=== PATIENT | male | born 1965 | race Caucasian/White ===

== ENCOUNTER 2016-11-12 07:32 | Emergency (ER) | payer BC ==
[2016-11-12 07:37] VITALS: BP 142/88
[2016-11-12] MEDS ORDERED: Ondansetron 4 MG/2 ML SDV IVPUSH ONE (07:48)
--- NOTE | 2016-11-12 07:53 | EDM.PDOC ---
ED HISTORY OF PRESENT ILLNESS - General Chief Complaint: Cardiovascular Problem Stated Complaint: NAUSEA Time Seen by Provider: 11/12/16 07:53 Source of Information: Reports: Patient History Limitations: Reports: No limitations - History of Present Illness INITIAL COMMENTS - FREE TEXT/NARRATIVE: 51-year-old male presents the ED after a near syncopal event while in the radiology suite where he was preparing to have Nadeen can ECG stress test. States it had started to feel unwell after needlestick in any case the saline. Develop some diaphoresis lie slight nausea but clammy and little short of breath so they brought him to the ED. Is not a recurrent suggest early. Orthostatic BPs were positive with supine BP one 3284 and standing 117/92. Rates are not included in the evaluation. He feels fine now worries lying still Symptom Onset Date: 11/12/16 Symptom Onset Time: 07:30 Timing/Duration: Reports: Minutes: Severity: moderate Location, General: Reports: generalized Quality: Reports: Other ([place] mildly nauseated and clammy cool and diaphoretic like he might faint.) Improves with: Reports: Rest (Supine position) Worsens with: Reports: Other Context, General: Denies: Activity (Standing.), Exercise, Lifting, Sick contact , Trauma, Other Associated Symptoms (General): Reports: nausea/vomiting, shortness of breath, weakness, other. Denies: confusion, chest pain, cough, cough w sputum, diaphoresis, fever/chills, headaches, loss of appetite, malaise, rash (Mild nausea), seizure, syncope Treatments MANAGER MORTGAGE: Reports: Other (see below) (Diaphoresis) - Related Data Allergies/ADRs: Allergies Allergy/AdvReac Type Severity Reaction Status Date / Time No Known Allergies Allergy Verified 11/12/16 07:37 Home Meds: Home Meds . [No Known Home Meds] 11/12/16 [History] Past Medical History Cardiovascular History: Reports: IA, Other (see below) Other Cardiovascular History: Woaem-Dznmehgoi-Utpbe Syndrome - Past Surgical History Cardiovascular Surgical History: Reports: Cardiac Ablation Other Cardiovascular Surgeries/Procedures: ablation in 1999. IA's while an infant Musculoskeletal Surgical History: Reports: ORIF Other Musculoskeletal Surgeries/Procedures:: ORIF R Foot Social & Family History - Tobacco Use Smoking Status *Q: Former Smoker Used Tobacco, but Quit: Yes Month Tobacco Last Used: 13 years Second Hand Smoke Exposure: No - Caffeine Use Caffeine Use: Reports: Coffee - Recreational Drug Use Recreational Drug Use: No - Living Situation & Occupation Living situation: Reports: Occupation: employed ED ROS GENERAL - Review of Systems Review Of Systems: See Below Constitutional: Reports: weakness. Denies: fever, chills, malaise, fatigue, decreased appetite, weight loss (This morning's events.) HEENT: Reports: No symptoms Respiratory: Reports: Shortness of Breath. Denies: Wheezing, Pleuritic Chest Pain, Cough, Sputum, Hemoptysis Cardiovascular: Reports: Lightheadedness. Denies: Chest pain, Blood pressure problem, Dyspnea on exertion, Edema, Palpitations Endocrine: Reports: no symptoms GI/Abdominal: Reports: Nausea (Transient nausea) : Reports: no symptoms Musculoskeletal: Reports: no symptoms Skin: Reports: diaphoresis (Was cool and clammy when he arrived with some pallor.) Neurological: Reports: Dizziness, Weakness. Denies: Pre-Existing Deficit, Seizure, Tingling Psychiatric: Reports: No symptoms Hematologic/Lymphatic: Reports: no symptoms Immunologic: Reports: no symptoms ED EXAM, GENERAL - Physical Exam Exam: See Below Exam Limited By: No limitations General Appearance: alert, WD/WN, no apparent distress Eye Exam: bilateral eye: normal inspection Throat/Mouth: Normal inspection, Normal lips, Normal oropharynx Head: atraumatic, normocephalic Neck: normal inspection, supple, non-tender, full range of motion Respiratory/Chest: no respiratory distress, lungs clear, normal breath sounds, no accessory muscle use, chest non-tender Cardiovascular: normal peripheral pulses, regular rate, rhythm, no edema, no gallop, no JVD, no murmur Peripheral Pulses: 2+: posterior tibial (L), posterior tibial (R), dorsalis pedis (L), dorsalis pedis (R) GI/Abdominal: normal bowel sounds, soft, non tender, no distention, other ( Large umbilical hernia which is easily reduced and not bothersome to the patient.) Neurological: alert, oriented, CN II-XII intact, normal cognition, normal gait Psychiatric: normal affect, normal mood Skin Exam: Warm, Dry, Intact, Normal color, No rash Course - Vital Signs Last Recorded V/S: Last Vital Signs Temp 36.1 C 11/12/16 07:34 Pulse 65 11/12/16 07:34 Resp 18 11/12/16 07:34 BP 142/88 H 11/12/16 07:34 Pulse Ox 96 11/12/16 08:05 Orthostatic Blood Pressure [ 129/88 Standing] Orthostatic Blood Pressure [ 127/70 Supine] - Orders/Labs/Meds Orders: Active Orders 24 hr Category Date Time Status Dextrose 5%-0.9% NaCl [Dextrose 5%-Normal Saline] 1,000 Med 11/12/16 08:00 Active ml IV ASDIRECTED Medication Orders Dextrose/Sodium Chloride (Dextrose 5%-Normal Saline) 1,000 mls @ 999 mls/hr IV ASDIRECTED JENNIFER Last Admin: 11/12/16 07:57 Dose: 999 mls/hr Meds: Medications Generic Name Dose Route Start Last Admin Trade Name Freq PRN Reason Stop Dose Admin Dextrose/Sodium Chloride 1,000 mls @ 999 mls/hr 11/12/16 08:00 11/12/16 07:57 Dextrose 5%-Normal Saline IV 999 mls/hr ASDIRECTED JENNIFER Administration Discontinued Medications Generic Name Dose Route Start Last Admin Trade Name Freq PRN Reason Stop Dose Admin Ondansetron HCl 4 mg 11/12/16 07:48 11/12/16 07:56 Zofran IVPUSH 11/12/16 07:49 4 mg ONETIME ONE Administration - Radiology Interpretation Free Text/Narrative:: 51-year-old male sent across from the radiology Department where he was scheduled to have Laurent can ECG stress test this morning. After IV access and initial injection a flush he started to feel unwell with nausea continues to saline in his mouth felt lightheaded dizzy adopt a little diaphoresis and clamminess and felt a little short of breath. [place] he might faint. Therefore he was brought to the ED for further evaluation one supine and at this time he feels back to normal. Orthostatics show BP 132/84 supine BP standing 117/92. Return not included in this evaluation. My examination is otherwise completely normal. Plan Will give him a bolus of D5 normal saline and he should still be able to have his stress test carried out. - Re-Assessments/Exams Free Text/Narrative Re-Assessment/Exam: 11/12/16 09:00: Decision made by combination of patient and ECG stress testing staff that it be better suited to come back it an alternative time for he is scan. He'll therefore be rebooked. He was discharged home from the emergency room after 600 mils of IV fluids as he was no longer orthostatic. He will not go on have breakfast. Departure - Departure Time of Disposition: 08:51 Disposition: Home, Self-Care 01 Condition: fair Clinical Impression: Vasovagal near-syncope Instructions: Vasovagal Syncope, Adult Referrals: Cesar Soriano MD [Primary Care Provider] - Forms: ED Department Discharge Additional Instructions: Evaluation in the emergency room today in regards to development of nausea lightheadedness dizziness and shortness of breath feeling after having needlestick woke in preparation for Nadeen can ECG stress test. It abuts the ED for evaluation because you're feeling so unwell. Identified the to blood pressure had dropped substantially when you stand which is called orthostatic hypotension minibag were volume depleted from not eating or drinking much since yesterday. This coupled by recent needlestick which will go vasovagal reaction to order heart rate transiently which in turned toward her blood pressure further. This cause you to feel quite ill for a period of time. You're treated with intravenous Flagyl in the ED and orthostatic blood pressures returned to normal. Apparently they don't have time to complete the ECG stress test today and therefore will have to be rebooked a later time. Your therefore discharged to home with no changes in medications made. - My Orders Last 24 Hours: My Active Orders 11/12/16 08:00 Dextrose 5%-0.9% NaCl [Dextrose 5%-Normal Saline] 1,000 ml IV ASDIRECTED - Assessment/Plan Last 24 Hours: My Active Orders 11/12/16 08:00 Dextrose 5%-0.9% NaCl [Dextrose 5%-Normal Saline] 1,000 ml IV ASDIRECTED
[2016-11-12] MEDS ORDERED: Dextrose 5%-0.9% NaCl 1,000 ML IV SCH (08:00)
== END 2016-11-12 09:00 | disposition home or self-care (01) ==
LOC: JD.ED 07:32
DX: R55 Syncope and collapse (principal); I25.2 Old myocardial infarction; Z87.891 Personal history of nicotine dependence
CPT/HCPCS: 96361; 96374; 99284; J2405; J7042

== ENCOUNTER 2018-02-19 06:32 | Day surgery (SDC) | payer BC ==
[2018-02-19] MEDS ORDERED: Lidocaine 1%/Sod Bicarbonate in NS 8.4% 1 ML Syringe IDERM PRN (07:00)
[2018-02-19] MEDS ORDERED: Sodium Chloride 0.9% 10 ML Syringe FLUSH PRN (07:00)
[2018-02-19] MEDS ORDERED: Lactated Ringers 1,000 ML IV SCH (07:00)
--- NOTE | 2018-02-19 07:20 | PCM.PREANE ---
Preanesthetic Assessment - Procedure Proposed Procedure: colonoscopy - Anesthesia/Transfusion/Family Hx Anesthesia History: No Prior Anesthesia Family History of Anesthesia Reaction: No Transfusion History: No Prior Transfusion(s) - Review of Systems General: No Symptoms Pulmonary: No Symptoms Cardiovascular: No Symptoms Gastrointestinal: No Symptoms (`) Neurological: No Symptoms Other: Reports: None - Physical Assessment NPO Status Date: 02/18/18 NPO Status Time: 22:00 Pulse: 70 O2 Sat by Pulse Oximetry: 95 Respiratory Rate: 16 Blood Pressure: 140/95 Temperature: 37.1 C Height: 1.7 m ASA Class: 3 Mental Status: Alert & Oriented x3 Airway Class: Mallampati = 2 Dentition: Reports: Normal Dentition Thyro-Mental Finger Breadths: 3 Mouth Opening Finger Breadths: 5 ROM/Head Extension: Limited/Partial (stiffness) Lungs: Clear to Auscultation, Normal Respiratory Effort Cardiovascular: Regular Rate, Regular Rhythm - Allergies Allergies/Adverse Reactions: Allergies Allergy/AdvReac Type Severity Reaction Status Date / Time No Known Allergies Allergy Verified 02/18/18 14:40 - Blood Blood Available: No - Anesthesia Plan Pre-Op Medication Ordered: None - Acknowledgements Anesthesia Type Planned: MAC Pt an Appropriate Candidate for the Planned Anesthesia: Yes Alternatives and Risks of Anesthesia Discussed w Pt/Guardian: Yes Pt/Guardian Understands and Agrees with Anesthesia Plan: Yes PreAnesthesia Questionnaire HEENT History: Reports: Impaired Vision, Other (See Below) Other HEENT History: uses reading glasses Cardiovascular History: Reports: CAD, High Cholesterol, Hypertension, LA, Other (See Below) Other Cardiovascular History: Tohhz-Mtwktpayz-Ldshi Syndrome Respiratory History: Reports: SOB, Other (See Below) (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) Other Respiratory History: elevated hemidiaphragm, left pulmonary nodule, paralyzed diaphragm Gastrointestinal History: Reports: Other (See Below) Other Gastrointestinal History: umbilical hernia Genitourinary History: Reports: None MEDICAL CENTER REPRESENTATIVE History: Reports: None Musculoskeletal History: Reports: None Neurological History: Reports: None Psychiatric History: Reports: None Endocrine/Metabolic History: Reports: None Hematologic History: Reports: None Immunologic History: Reports: None Oncologic (Cancer) History: Reports: None Dermatologic History: Reports: None - Past Surgical History Head Surgeries/Procedures: Reports: None Cardiovascular Surgical History: Reports: Cardiac Ablation Other Cardiovascular Surgeries/Procedures: ablation in 1999. LA's while an GI Surgical History: Reports: None Female Surgical History: Reports: None Male Surgical History: Reports: None Endocrine Surgical History: Reports: None Neurological Surgical History: Reports: None Musculoskeletal Surgical History: Reports: ORIF Other Musculoskeletal Surgeries/Procedures:: ORIF R Foot Oncologic Surgical History: Reports: None Dermatological Surgical History: Reports: None - SUBSTANCE USE Smoking Status *Q: Former Smoker Recreational Drug Use History: No - HOME MEDS Home Medications: Home Meds Albuterol Sulfate [Proair Hfa] 2 puff INH Q4H PRN 02/18/18 [History] Aspirin [Halfprin] 81 mg PO DAILY 02/18/18 [History] Naproxen Sodium [Aleve] 220 mg PO BID 02/18/18 [History] Pravastatin Sodium 20 mg PO DAILY 02/18/18 [History] - CURRENT (IN HOUSE) MEDS Current Meds: Current Medications Lactated Ringer's (Ringers, Lactated) 1,000 mls @ 125 mls/hr IV ASDIRECTED JENNIFER Lidocaine/Sodium Bicarbonate (Buffered Lidocaine 1% In Ns 8.4%) 0.25 ml IDERM ONETIME PRN PRN Reason: Prior to IV Start Sodium Chloride (Saline Flush) 10 ml FLUSH ASDIRECTED PRN PRN Reason: Keep Vein Open
--- NOTE | 2018-02-19 07:32 | PCM.HP ---
H&P History of Present Illness - General Date of Service: 02/19/18 Admit Problem/Dx: Family history of colon polyps in mother Source of Information: Patient History Limitations: Reports: No Limitations - History of Present Illness Initial Comments - Free Text/Narative: 52 year old male here today for screening colonoscopy, his mother had colon polyps removed. The patient has never had a colonoscopy, he is having no blood in the stool, no radical change in bowel habits. THere is no family history of colon cancer. He is able to accomplish 4 mets of activity without chest pain or dyspnea. He has a history of an elevated hemidiaphragm after a fall. - Related Data Allergies/Adverse Reactions: Allergies Allergy/AdvReac Type Severity Reaction Status Date / Time No Known Allergies Allergy Verified 02/18/18 14:40 Home Medications: Home Meds Albuterol Sulfate [Proair Hfa] 2 puff INH Q4H PRN 02/18/18 [History] Aspirin [Halfprin] 81 mg PO DAILY 02/18/18 [History] Naproxen Sodium [Aleve] 220 mg PO BID 02/18/18 [History] Pravastatin Sodium 20 mg PO DAILY 02/18/18 [History] Past Medical History HEENT History: Reports: Impaired Vision, Other (See Below) Other HEENT History: uses reading glasses Cardiovascular History: Reports: CAD, High Cholesterol, Hypertension, CT, Other (See Below) Other Cardiovascular History: Bvojx-Gcoennuce-Crurx Syndrome Respiratory History: Reports: SOB, Other (See Below) (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) Other Respiratory History: elevated hemidiaphragm, left pulmonary nodule, paralyzed diaphragm Gastrointestinal History: Reports: Other (See Below) Other Gastrointestinal History: umbilical hernia Genitourinary History: Reports: None APARTMENT RENTAL CLERK History: Reports: None Musculoskeletal History: Reports: None Neurological History: Reports: None Psychiatric History: Reports: None Endocrine/Metabolic History: Reports: None Hematologic History: Reports: None Immunologic History: Reports: None Oncologic (Cancer) History: Reports: None Dermatologic History: Reports: None - Past Surgical History Head Surgeries/Procedures: Reports: None Cardiovascular Surgical History: Reports: Cardiac Ablation Other Cardiovascular Surgeries/Procedures: ablation in 1999. CT's while an GI Surgical History: Reports: None Female Surgical History: Reports: None Male Surgical History: Reports: None Endocrine Surgical History: Reports: None Neurological Surgical History: Reports: None Musculoskeletal Surgical History: Reports: ORIF Other Musculoskeletal Surgeries/Procedures:: ORIF R Foot Oncologic Surgical History: Reports: None Dermatological Surgical History: Reports: None Social & Family History - Tobacco Use Smoking Status *Q: Former Smoker Used Tobacco, but Quit: Yes Month/Year Tobacco Last Used: 2006 - Caffeine Use Caffeine Use: Reports: Coffee - Recreational Drug Use Recreational Drug Use: No Drug Use in Last 12 Months: No - Living Situation & Occupation Living situation: Reports: Occupation: Employed H&P Review of Systems - Review of Systems: Review Of Systems: See Below General: Reports: No Symptoms Pulmonary: Reports: Shortness of Breath. Denies: Wheezing, Pleuritic Chest Pain , Cough, Sputum Cardiovascular: Reports: No Symptoms Gastrointestinal: Reports: No Symptoms Skin: Reports: No Symptoms Exam - Exam Exam: See Below - Vital Signs Vital Signs: Last Vital Signs Temp 37.1 C 02/19/18 07:21 Pulse 70 02/19/18 07:21 Resp 16 02/19/18 07:21 BP 140/95 H 02/19/18 07:21 Pulse Ox 95 02/19/18 07:21 - Exam General: Alert, Oriented Neck: Supple Lungs: Clear to Auscultation, Normal Respiratory Effort Cardiovascular: Regular Rate, Regular Rhythm - Problem List (1) Family history of colonic polyps SNOMED Code(s): 527238445 ICD Code: Z83.71 - FAMILY HISTORY OF COLONIC POLYPS Status: Acute Current Visit: Yes Problem List Initiated/Reviewed/Updated: Yes Orders Last 24hrs: Active Orders 24 hr Category Date Time Status Peripheral IV Care [RC] . DIRECTED Care 02/19/18 07:00 Active Verify Patient Consent Obtain [RC] ASDIRECTED Care 02/19/18 07:00 Active Lactated Ringers [Ringers, Lactated] 1,000 ml Med 02/19/18 07:00 Active IV ASDIRECTED Lidocaine 1%/Sod Bicarbonate [Buffered Lidocaine 1% in Med 02/19/18 07:00 Active NS 8.4%] 0.25 ml IDERM ONETIME PRN Sodium Chloride 0.9% [Saline Flush] Med 02/19/18 07:00 Active 10 ml FLUSH ASDIRECTED PRN Medication Administration Instruction [OM.PC] Routine Oth 02/19/18 07:00 Ordered Peripheral IV Insertion Adult [OM.PC] Routine Oth 02/19/18 07:00 Ordered Medication Orders Lactated Ringer's (Ringers, Lactated) 1,000 mls @ 125 mls/hr IV ASDIRECTED JENNIFER Lidocaine/Sodium Bicarbonate (Buffered Lidocaine 1% In Ns 8.4%) 0.25 ml IDERM ONETIME PRN PRN Reason: Prior to IV Start Sodium Chloride (Saline Flush) 10 ml FLUSH ASDIRECTED PRN PRN Reason: Keep Vein Open Assessment/Plan Comment:: 52 year old male here for screening colonoscopy for family history of colon polyps. benefits and risks discussed including the possibility of perforation, bleeding or anesthesia problems. He voiced understanding and will proceed with colonoscopy.
--- NOTE | 2018-02-19 08:17 | PCM.OPNOTE ---
- General Post-Op/Procedure Note Date of Surgery/Procedure: 02/19/18 Operative Procedure(s): Screening colonoscopy Findings: Normal colonoscopy Pre Op Diagnosis: Family history of colon polyps in mother Post-Op Diagnosis: Normal colonoscopy Anesthesia Technique: MAC Primary Surgeon: Cesar Soriano Anesthesia Provider: Brianna Adams EBPaul in mLs: 0 Complications: None Condition: Good Free Text/Narrative:: After the patient gave verbal and written consent he was placed on blood pressure and pulse ox monitoring. He was given iv sedation which he tolerated well. The olympus colonoscope was inserted per rectum and advanced to the cecum without difficulty. The ileocecal valve and appendiceal orfice were imaged documenting cecal intubation. The scope was slowly withdrawn and the mucosal surfaces were viewed. The prep was excellent, the views were excellent. The scope was then retroflexed in the rectum and then removed. His next screening colonoscopy is recommended in 10 years.
--- NOTE | 2018-02-19 08:31 | PCM48HPAN ---
Post Anesthesia Note - EVALUATION WITHIN 48HRS OF ANESTHETIC Vital Signs in Normal Range: Yes Patient Participated in Evaluation: Yes Respiratory Function Stable: Yes Airway Patent: Yes Cardiovascular Function Stable: Yes Hydration Status Stable: Yes Pain Control Satisfactory: Yes Nausea and Vomiting Control Satisfactory: Yes Mental Status Recovered: Yes Pulse Rate: 71 SaO2: 93 Resp Rate: 18 Temperature: 37.1 C Blood Pressure: 110/73
[2018-02-19 09:02] VITALS: BP 124/81
== END 2018-02-19 09:00 | disposition home or self-care (01) ==
LOC: JD.SDS 06:32
PROVIDERS: ATTEND Family Medicine
DX: Z12.11 Encounter for screening for malignant neoplasm of colon (principal); I10 Essential (primary) hypertension; I25.2 Old myocardial infarction; E78.00 Pure hypercholesterolemia, unspecified; Z87.891 Personal history of nicotine dependence; Z79.82 Long term (current) use of aspirin; Z79.899 Other long term (current) drug therapy; Z83.71 Family history of colonic polyps
CPT/HCPCS: 45378; J7120